=== PATIENT | female | born 1985 | race Caucasian/White ===

== ENCOUNTER 2017-05-27 18:30 | Emergency (ER) | payer SELFPAY ==
[~2017-05-27] VITALS: Ht 149.9 cm; Wt 59.0 kg
[2017-05-27 18:50] VITALS: BP_SYST 162
[2017-05-27 20:31] VITALS: BP_SYST 142
== END 2017-05-27 20:31 | disposition home or self-care (01) ==
LOC: SED 18:30
DX: L30.9 Dermatitis, unspecified (principal)
CPT/HCPCS: 99283